=== PATIENT | female | born 1940 | race Caucasian/White ===

== ENCOUNTER → 2016-12-03 | Outpatient (CLI) | payer MEDICARE, BC ==
[2016-09-24 12:29] VITALS: BP 126/53
[~2016-12-03] MED LIST: ALBU8.5H6 IH; ALBU8.5H6 INH; ALPR0.25 PO; BRIN10DR OP; BUPIVACAINE 0.5% 50 ML VIAL. IJ ONE; CALC600T4 PO; CARV6.252 PO; CHOL10002 PO; CHOL100099 PO; FERR-26 PO; FLUT1DIS5 IH; FLUT50DI IH; GLUC1CAP41 PO; GLUC1CAP48 PO; LACT1CAP6 PO; LATA2.5D3 OP; LIDOCAINE 1% Multi-Dose 20 ML VIAL. ID ONE; LORA10TA3 PO; MELO7.5T5 PO; MONT10TA6 PO; MONT10TA9 PO; OMEP20CA9 PO; Oxycodone Hcl/Acetaminophen PO; PRED-220 PO; QUIN324C PO; RABE20TA5 PO; TRAM50TA PO; ZOLP5TAB PO; methylPREDNISolone ACETATE 40 MG/ML VIAL. IM ONE
--- NOTE | 2016-12-03 16:27 | KCIC ---
Examination: Fluoroscopic guided hamstring tendon steroid injection . Comparison: 09/24/2016 Clinical indication: Hamstring tendinitis Procedure: Potential benefits and risks of the procedure were discussed with the patient and informed consent was obtained. The right gluteal region was prepped and draped in a sterile fashion. After local anesthesia, a 22 gauge spinal needle was placed the the ischial tuberosity and hamstring tendon origin using fluoroscopic guidance. 2 cc Depo-Medrol and 1 cc 0.5 percent Marcaine were injected without difficulty. The needle was removed and hemostasis was obtained at the puncture site. The patient tolerated the procedure well with no immediate complication. The patient within discharge home and postprocedural care instructions were provided. Fluoroscopy time: 00:20 Fluoroscopic image obtained 1. IMPRESSION Fluoroscopic guided right hamstring injection. Patient did state that her pain has significantly decreased after the injection. Electronically signed by: Dennis Alcala (Dec 03, 2016 16:25:59)
== END | disposition home or self-care (01) ==
LOC: KCIC 15:05
PROVIDERS: ATTEND Orthopaedic Surgery Sports Medicine
DX: M65 Synovitis and tenosynovitis (principal); J45.909 Unspecified asthma, uncomplicated; J44.9 Chronic obstructive pulmonary disease, unspecified; Z82.49 Family history of ischemic heart disease and other diseases of the circulatory system; S76.311A Strain of muscle, fascia and tendon of the posterior muscle group at thigh level, right thigh, initial encounter
CPT/HCPCS: J1030; J3490

== ENCOUNTER → 2021-04-18 | Outpatient (CLI) | payer MEDICARE, BC ==
[2016-09-24 12:29] VITALS: BP 126/53
[~2021-04-18] MED LIST changes: -BUPIVACAINE 0.5% 50 ML VIAL. IJ ONE; -CALC600T4 PO; +CALC600T60 PO; +CARV6.2511 PO; -CARV6.252 PO; -FERR-26 PO; +FERR325T14 PO; -LIDOCAINE 1% Multi-Dose 20 ML VIAL. ID ONE; +MONT10TA49 PO; -MONT10TA6 PO; -MONT10TA9 PO; +OMEP20CA16 PO; -OMEP20CA9 PO; +RABE20TA18 PO; -RABE20TA5 PO; -methylPREDNISolone ACETATE 40 MG/ML VIAL. IM ONE
--- NOTE | 2021-04-18 10:28 | RAD ---
EXAM: Right lower extremity arterial Doppler sonogram with bilateral ankle-brachial indices (NIKKI). HISTORY: Nonhealing ulcer. Peripheral vascular disease. Atherosclerosis. TECHNIQUE: Doppler sonographic evaluation of the lower extremities was performed and pressure reading s were assessed. FINDINGS: Right brachial pressure: 122 mmHg Left brachial pressure: 123 mmHg Right ankle pressure (dorsalis pedis artery): 148 mmHg Right ankle pressure (posterior tibial artery): 157 mmHg Right NIKKI: 1.28 Left ankle pressure (dorsalis pedis artery): 148 mmHg Left ankle pressure (posterior tibial artery): 168 mmHg Left NIKKI: 1.37 There is partially calcified atherosclerotic plaque throughout the right lower extremity arteries. Th ere are abnormal monophasic waveforms involving the distal posterior tibial artery, peroneal artery, anterior tibial artery and dorsalis pedis artery. There are triphasic and biphasic waveforms proximal to the distal posterior tibial artery. There are elevated peak systolic velocities within the right common femoral, proximal superficial fem oral and distal posterior tibial artery, measuring 169 cm/s, 156 cm/s, and 170 cm/s. IMPRESSION: 1. Abnormal biphasic waveforms involving the distal posterior tibial, peroneal, anterior tibial and d orsalis pedis arteries, likely due to hemodynamically significant proximal stenosis. There are also e levated peak systolic velocities involving the common femoral, proximal superficial femoral and dista l posterior tibial artery suggesting hemodynamically significant stenosis. No arterial occlusion is s een. 2. Normal bilateral ankle-brachial indices. Electronically signed by: Theresa Parr MD (04/18/2021 10:26 AM) [id number]
== END ==
LOC: US 09:12
PROVIDERS: ATTEND Preventive Medicine Undersea and Hyperbaric Medicine
DX: L97.419 Non-pressure chronic ulcer of right heel and midfoot with unspecified severity (principal); I73.9 Peripheral vascular disease, unspecified
CPT/HCPCS: 93922; 93926

== ENCOUNTER 2021-04-28 06:51 | Outpatient (CLI) | payer MEDICARE, BC ==
[~2021-04-28] VITALS: Ht 152.4 cm; Wt 60.9 kg
[2021-04-28] VITALS (12 sets, daily range): BP systolic 83–140; BP diastolic 47–58
[2021-04-28 07:41] LABS: BASO % 0 % (0-3); EOS # 0.2 x10^3/uL (0.0-0.7); EOS % 3 % (0-3); HEMATOCRIT 34.2 % (36.0-47.0); HEMOGLOBIN 11.5 g/dL (12.0-15.5); LYMPH # 1.4 x10^3/uL (1.0-4.8); LYMPH % 25 % (24-48); MEAN CORPUSCULAR HEMOGLOBIN 32 pg (25-35); MEAN CORPUSCULAR HGB CONC 34 g/dL (31-37); MEAN CORPUSCULAR VOLUME 94 fL (79-100); MONO # 0.7 x10^3/uL (0.0-1.1); MONO % 11 % (0-9); NEUT # 3.6 x10^3/uL (1.8-7.7); NEUT % 61 % (31-73); PLATELET COUNT 201 x10^3/uL (140-400); RED BLOOD COUNT 3.63 x10^6/uL (3.50-5.40); RED CELL DISTRIBUTION WIDTH 13.7 % (11.5-14.5); WHITE BLOOD COUNT 5.8 x10^3/uL (4.0-11.0)
[2021-04-28 07:47] LABS: PROTHROMBIN TIME PATIENT 13.2 SEC (11.7-14.0)
[2021-04-28 08:01] LABS: CALCIUM 9.1 mg/dL (8.5-10.1); CREATININE 1.2 mg/dL (0.6-1.0); POTASSIUM 4.5 mmol/L (3.5-5.1)
[2021-04-28] MEDS ORDERED: HEPARIN for ARTERIAL LINE 1,500 ML ONE (08:24)
[2021-04-28] MEDS ORDERED: LIDOCAINE WITH 8.4% SOD BICARB 3 ML DISP.SYRIN. ONE (08:24)
[2021-04-28] MEDS ORDERED: IODIXANOL 320 MG/ML 100 ML VIAL. ONE ×2 (08:24→09:50)
[2021-04-28] MEDS ORDERED: LEVO750T5 PO (08:46)
[2021-04-28] MEDS ORDERED: CELE200C PO (08:46)
[2021-04-28] MEDS ORDERED: FLUOXETINE PO (08:46)
[2021-04-28] MEDS ORDERED: fentaNYL PF VIAL 100 MCG/2 ML VIAL ONE (08:59)
[2021-04-28] MEDS ORDERED: MIDAZOLAM HCL/PF 2 MG/2 ML VIAL. ONE (08:59)
[2021-04-28] MEDS ORDERED: HEPARIN for IV BOLUS 10,000 UNIT/10 ML VIAL. ONE (08:59)
[2021-04-28] MEDS ORDERED: fentaNYL PF VIAL 100 MCG/2 ML VIAL IV ONE (09:15)
[2021-04-28] MEDS ORDERED: IODIXANOL 320 MG/ML 100 ML VIAL. IART ONE (09:15)
[2021-04-28] MEDS ORDERED: MIDAZOLAM HCL/PF 2 MG/2 ML VIAL. IV ONE (09:15)
[2021-04-28] MEDS ORDERED: LIDOCAINE WITH 8.4% SOD BICARB 3 ML DISP.SYRIN. IJ ONE (09:15)
[2021-04-28] MEDS ORDERED: CONTRAST GIVEN. MC PRN (09:30)
[2021-04-28] MEDS ORDERED: HEPARIN for IV BOLUS 10,000 UNIT/10 ML VIAL. IV ONE (09:45)
--- NOTE | 2021-04-28 11:27 | NUR ---
FIRST VITAL POST PROCEDURE DONE AT 1051 Addendum: 04/28/21 at 1144 by JESUSITA HARTLEY RADIO Amended: Links added.
--- NOTE | 2021-04-28 11:31 | PDOC ---
Exam Impregnator Electrolytic Capacitors Impregnator Electrolytic Capacitors Giuseppe Pre-Procedure Diagnosis Pre-Procedure Diagnosis Right foot wound Post-Procedure Diagnosis Post-Procedure Diagnosis Same. AT and DP stenosis Procedure Performed Procedure Performed Angioplasty AT/DP arteries Type of Anesthesia Type of Anesthesia Mod Sed Estimated Blood Loss EBL: 10 Specimens Specimans None Drain/Tubes Drains/Tubes None Condition of Patient Condition of Patient Stable Disposition Disposition CVOBS 4 recovery MARION RUSSELL MD Apr 28, 2021 11:31
--- NOTE | 2021-04-28 14:26 | RAD ---
04/28/2021 1. Abdominal aortogram 2. Pelvic angiography 3. Right lower extremity angiography 4. Angioplasty of the right anterior tibial artery Indication: Nonhealing wound, dorsum right foot Discussion: Consent: The procedure was explained in its entirety to the patient or the patients designated repres entative by a member of the treatment team, including a discussion of the risks, benefits and commonl y accepted alternatives to the procedure, as well as the expected consequences of no therapy whatsoev er. Discussion of the risks included, but was not limited to, those that are most frequent and thos e that are rare but possibly severe or life-threatening, as well as the possibility of unforeseen com plications. Sedation: The procedure was performed under conscious sedation including continuous cardiopulmonary m onitoring via a dedicated sedation nurse.[id number] sedation time: 90 minutes Fluoroscopy time: 11.5 minutes Dose area product:78 Gycm2 Patient was brought to the fluoroscopy suite and placed in the supine position. A timeout procedure w as performed. The left groin is prepped and draped using sterile. Technique. Ultrasound evaluation de monstrates left common femoral artery. 1% lidocaine was administered for local anesthesia. The left c ommon femoral artery was accessed under direct ultrasound guidance. Micropuncture technique was used. A 5 [place] vascular sheath was placed. The catheter was advanced into the abdominal aorta. Abdominal aortogram was obtained. There is tortuosity of the abdominal aorta without evidence of aneurysm or flow limiting narrowing. The catheter was repositioned in the inferior abdominal aorta and a pelvic angiogram was obtained. No hemodynamically significant aortoiliac stenosis is identified. The catheter was repositioned in the right common femoral artery and right lower extremity angiogram was performed. Right common femoral, profunda, proximal SFA are patent. Catheter was repositioned in the SFA in the right lower extremity angiography continued. The distal r ight superficial femoral artery is patent. Popliteal artery is patent. These angiograms performed in lateral position secondary arthroplasty. There is moderate stenosis of the proximal anterior tibial artery. There is high-grade stenosis of th e distal anterior tibial artery. There is moderate stenosis of the proximal dorsalis pedis artery. Th e tibioperoneal trunk is patent. There are areas of moderate narrowing in the posterior tibial and pe roneal artery though flow is intact to the ankle. The lateral plantar artery is patent. The pedal arc h is intact. Given the location of the patient's wound of the dorsum of the foot, the anterior tibial and dorsalis pedis artery were treated. Wire was used to traverse the stenotic areas, and was performed angioplas ty with 2.5 mm balloon via multiple inflations. Subsequently there is significantly improved morpholo gy and flow throughout the anterior tibial and dorsalis pedis artery is more brisk flow through the f oot. Angiography through the access sheath demonstrates a mid common femoral puncture. A minx device was u sed to help achieve hemostasis. Additional manual pressure was held. Sterile dressings were applied. IMPRESSION: 1. No significant aortoiliac or femoropopliteal stenosis 2. Moderate high-grade stenoses involving the right anterior tibial and dorsalis pedis artery treated with balloon angioplasty with significant improvement in morphology and flow 3. Moderate stenoses of the peroneal and posterior tibial artery with overall intact blood flow into the pedal arch Electronically signed by: Manolo Chin MD (04/28/2021 2:23 PM) [id number]
--- NOTE | 2021-04-28 14:37 | NUR ---
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 All questions have been answered and understanding verbalized. The following instructions and handouts were given: N/A Discontinued lines and drains: Left hand iv dc'd and tip intact. Patient discharged to home with daughter via personal vehicle.
== END 2021-04-28 14:10 | disposition home or self-care (01) ==
LOC: INTRAD 06:51
PROVIDERS: ATTEND Preventive Medicine Undersea and Hyperbaric Medicine
DX: I73.9 Peripheral vascular disease, unspecified (principal); J44.9 Chronic obstructive pulmonary disease, unspecified; K21.9 Gastro-esophageal reflux disease without esophagitis; M19.90 Unspecified osteoarthritis, unspecified site; M81.0 Age-related osteoporosis without current pathological fracture; Z85.828 Personal history of other malignant neoplasm of skin; Z90.710 Acquired absence of both cervix and uterus; Z98.890 Other specified postprocedural states; Z87.891 Personal history of nicotine dependence; Z88.2 Allergy status to sulfonamides
CPT/HCPCS: 36415; 37228; 75625; 75710; 76937; 80048; 85025; 85610; 99152; 99153; C1713; C1725; C1760; C1769; C1892; C1894; J1644; J2250; J3010; J3490; Q9967

== ENCOUNTER → 2021-06-03 | Outpatient (CLI) | payer MEDICARE, BC ==
[2021-04-28 13:34] VITALS: BP 108/58
[~2021-06-03] MED LIST changes: +CELE200C PO; +FLUOXETINE PO; +LEVO750T5 PO
--- NOTE | 2021-06-03 13:54 | KCIC ---
EXAM: CT right foot DATE: 06/03/2021 9:22 AM COMPARISON: No prior INDICATION: Reason: Rt foot pain, bunion surgery February 2021. 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 2-D reformatte d sagittal and coronal images were created at the CT console workstation. PQRS compliance statement - One or more of the following individualized dose reduction techniques wer e utilized for this study: 1. Automated exposure control 2. Adjustment of the mA and/or kV according to patient size 3. Use of iterative reconstruction technique FINDINGS: Changes of bunionectomy and first TMT arthrodesis are seen. There is suggestion of trace bony bridgin g at the dorsal aspect. No hardware complication. Valgus angulation at the lesser MTP joints. There is normal muscle bulk. Multifocal degenerative land ges centered at the IP joints and midfoot. No acute fracture. IMPRESSION: 1. Changes of first TMT arthrodesis with suspected trace early bony bridging at the dorsal aspect. N o hardware complication. 2. Hallux metatarsal head bunionectomy changes are seen. Electronically signed by: Orlando Heath MD (06/03/2021 1:52 PM) [id number]
== END ==
LOC: KCIC CT 09:15
PROVIDERS: ATTEND Orthopaedic Surgery Foot and Ankle Surgery
DX: M20.11 Hallux valgus (acquired), right foot (principal); M25.571 Pain in right ankle and joints of right foot
CPT/HCPCS: 73700